=== PATIENT | male | born 1980 | race Two or more races ===

== ENCOUNTER 2019-06-22 18:54 | Emergency (ER) | payer SELFPAY ==
[~2019-06-22] VITALS: Ht 170.2 cm; Wt 90.7 kg
[2019-06-22 19:30] VITALS: BP 159/103
[2019-06-22 20:03] LABS: BILIRUBIN,URINE NEGATIVE (NEG); CLARITY,URINE CLEAR; COLOR,URINE YELLOW; NITRITE,URINE NEGATIVE (NEG); PH,URINE 5.5; PROTEIN,URINE NEGATIVE (NEG-TRACE)
[2019-06-22] MEDS ORDERED: CEPH-263 PO (20:05)
[2019-06-22 20:10] LABS: BACTERIA,URINE 0 /HPF (0-FEW); SQUAMOUS EPITHELIAL CELL,UR FEW /LPF
--- NOTE | 2019-06-23 05:17 | PHYS DOC ---
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 Patient is not been evaluated for his symptoms prior to ED arrival. Denies STD exposure. [] Review of Systems Review of Systems ROS as per HPI All other systems were reviewed and found to be within normal limits, except as documented in this note. Allergies Allergies Allergies Coded Allergies Type Severity Reaction Last Updated Verified No Known Drug Allergies 06/22/19 No Physical Exam Physical Exam Constitutional: Well developed, well nourished, no acute distress, non-toxic appearance. [] HENT: Normocephalic, atraumatic, bilateral external ears normal, oropharynx moist, no oral exudates, nose normal. [] Eyes: PERRLA, EOMI, conjunctiva normal, no discharge. [] Neck: Normal range of motion, no tenderness, supple, no stridor. [] Cardiovascular:Heart rate regular rhythm, no murmur [] Lungs & Thorax: Bilateral breath sounds clear to auscultation [] : Uncircumcised with yeast balanitis and involvement of foreskin. No lesions, discharge,'s scrotum and testicles no masses[] Neurologic: Alert and oriented X 3, normal motor function, normal sensory function, no focal deficits noted. [] Psychologic: Affect normal, judgement normal, mood normal. [] Current Patient Data Vital Signs Vital Signs Date Time Temp Pulse Resp B/P (MAP) Pulse Ox O2 Delivery O2 Flow Rate FiO2 06/22/19 19:30 98.2 107 18 159/103 (121) 98 Room Air 98.2 Lab Values Laboratory Tests Test 06/22/19 19:55 Urine Collection Type Unknown Urine Color Yellow Urine Clarity Clear Urine pH 5.5 Urine Specific [place] 1.025 Urine Protein Negative mg/dL (NEG-TRACE) Urine Glucose (UA) 250 mg/dL (NEG) Urine Ketones (Stick) Negative mg/dL (NEG) Urine Blood Negative (NEG) Urine Nitrite Negative (NEG) Urine Bilirubin Negative (NEG) Urine Urobilinogen Dipstick 1.0 mg/dL (0.2 mg/dL) Urine Leukocyte Esterase Negative (NEG) Urine RBC 1-2 /HPF (0-2) Urine WBC 5-10 /HPF (0-4) Urine Squamous Epithelial Cells Few /LPF Urine Bacteria 0 /HPF (0-FEW) Urine Mucus Mod /LPF Glucose (Fingerstick) 221 mg/dL (70-99) H EKG EKG [] Radiology/Procedures Radiology/Procedures [] Course & Med Decision Making Course & Med Decision Making Pertinent Labs and Imaging studies reviewed. (See chart for details) Blood sugar elevated suggestive of undiagnosed diabetes. UA negative. Will place on oral antibiotics and topical antifungal cream with instructions to follow-up with local PCP CARLOS for further evaluation of diabetes.] Dragon Disclaimer Dragon Disclaimer This electronic medical record was generated, in whole or in part, using a voice recognition dictation system. Departure Departure Impression: Primary Impression: Balanitis Additional Impression: Hyperglycemia Disposition: ADMITTED INPATIENT Condition: GOOD Patient Instructions: Hyperglycemia, [id number], Balanitis and Foreskin Hygiene, Diabetes, Type 2, Am I at Risk Additional Instructions: You were evaluated in the ED for a skin infection of your penis. It is important to keep the foreskin dry and to apply OTC topical antifungal cream (Lotrimen AF) twice daily and take the oral antibiotic as directed. Your blood sugar is maria del rosario vated and is consistent with new onset diabetes and is contributing to your skin infection. You will require additional tests to be performed by your PCP and will likey need to be started on diabetic medications in order for infection to heal. Please schedule an appointment with local primary care provider later this week. Scripts Cephalexin (KEFLEX) 250 Mg Capsule 1 CAP PO TID for 7 Days, #30 CAP 0 Refills Prov: CEDRICK GRAHAM DO 06/22/19 Problem Qualifiers CEDRICK GRAHAM DO Jun 23, 2019 05:17
== END 2019-06-22 20:20 | disposition home or self-care (01) ==
LOC: ER 18:54
DX: N48.1 Balanitis (principal); B96.89 Other specified bacterial agents as the cause of diseases classified elsewhere; N48.89 Other specified disorders of penis; R73.9 Hyperglycemia, unspecified; R21 Rash and other nonspecific skin eruption; Z90.89 Acquired absence of other organs
CPT/HCPCS: 81001; 82962; 87086; 99284

== ENCOUNTER 2021-02-26 17:38 | Emergency (ER) | payer SELFPAY ==
[~2021-02-26] VITALS: Ht 177.8 cm; Wt 93.4 kg
[~2021-02-26 17:38] MED LIST: CEPH-263 PO
[2021-02-26] MEDS ORDERED: HYDROcodone/APAP 7.5/325MG 1 TAB TABLET PO ONE (19:15)
[2021-02-26] MEDS ORDERED: KETOROLAC 60 MG/2 ML VIAL. IM ONE (19:15)
[2021-02-26 19:37] LABS: BASO # 0.1 x10^3/uL (0.0-0.2); BASO % 1 % (0-3); EOS % 0 % (0-3); HEMOGLOBIN 15.6 g/dL (13.0-17.5); LYMPH # 1.7 x10^3/uL (1.0-4.8); LYMPH % 11 % (24-48); MEAN CORPUSCULAR HEMOGLOBIN 31 pg (25-35); MEAN CORPUSCULAR HGB CONC 34 g/dL (31-37); MEAN CORPUSCULAR VOLUME 90 fL (79-100); MONO # 0.5 x10^3/uL (0.0-1.1); MONO % 3 % (0-9); NEUT # 13.2 x10^3/uL (1.8-7.7); NEUT % 85 % (31-73); PLATELET COUNT 316 x10^3/uL (140-400); RED BLOOD COUNT 5.12 x10^6/uL (4.30-5.70); RED CELL DISTRIBUTION WIDTH 13.9 % (11.5-14.5); WHITE BLOOD COUNT 15.5 x10^3/uL (4.0-11.0)
[2021-02-26 19:43] LABS: GFR 83.2; POTASSIUM 4.5 mmol/L (3.5-5.1)
--- NOTE | 2021-02-26 19:46 | RAD ---
Exam: Right foot 3 views INDICATION: Great toe pain TECHNIQUE: Frontal, lateral and oblique views of the right foot Comparisons: None FINDINGS: Bone mineralization is normal. No acute or healed fractures. Soft tissues are unremarkable. Joint [facility] [place] are well-maintained. IMPRESSION: No acute osseous abnormality of the right foot Electronically signed by: Mary Jo Holm MD (02/26/2021 7:44 PM) ORTI[facility]
[2021-02-26 19:47] LABS: URIC ACID 5.3 mg/dL (3.5-7.2)
[2021-02-26] MEDS ORDERED: CEPHALEXIN 250 MG CAPSULE. PO STA (20:28)
[2021-02-26] MEDS ORDERED: IBUP-1007 PO (20:45)
[2021-02-26] MEDS ORDERED: CEPH500T PO (20:45)
--- NOTE | 2021-02-26 20:46 | PHYS DOC ---
Past Medical History Past Medical History: No Pertinent History Past Surgical History: Appendectomy Smoking Status: Never Smoker Alcohol Use: Occasionally Drug Use: None General Adult EDM: Chief Complaint: FOOT INJURY PAIN HPI: HPI: Patient is a 40-year-old male presents emergency department complaining of right great toe pain with redness and inflammation for the past 2 weeks. Patient reports visiting an urgent care center 10 days ago and was started on prednisone which did not help with the symptoms. Patient reports a 10 out of 10 pain. Patient denies a gout history, reports type 2 diabetes. Denies injury to his right toe. Denies taking other pain medications or trying other nonphar macological pain relief methods at home. Denies other physical complaints or physical concerns. Review of Systems: Review of Systems: 14 body systems of review of systems have been reviewed. See HPI for pertinent positives and negative responses, otherwise all other systems are negative, nonpertinent or noncontributory. Constitutional: Negative except as outlined in HPI above. Skin: Negative except as outlined in HPI above. Eyes: Negative except as outlined in HPI above. HENT: Negative except as outlined in HPI above. Respiratory: Negative except as outlined in HPI above. Cardiovascular: Negative except as outlined in HPI above. GI: Negative except as outlined in HPI above. : Negative except as outlined in HPI above. Musculoskeletal: Negative except as outlined in HPI above. Integument: Negative except as outlined in HPI above. Neurologic: Negative except as outlined in HPI above. Endocrine: Negative except as outlined in HPI above. Lymphatic: Negative except as outlined in HPI above. Psychiatric: Negative except as outlined in HPI above. Heart Score: C/O Chest Pain: No Risk Factors: Risk Factors: DM, Current or recent (<one month) smoker, HTN, HLP, family history of CAD, obesity. Risk Scores: Score 0 - 3: 2.5% MACE over next 6 weeks - Discharge Home Score 4 - 6: 20.3% MACE over next 6 weeks - Admit for Clinical Observation Score 7 - 10: 72.7% MACE over next 6 weeks - Early Invasive Strategies Current Medications: Current Medications Medications (Trade) Dose Ordered Sig/Vincenzo Start Time Stop Time Status Last Admin Dose Admin Acetaminophen/ Hydrocodone Bitart (Lortab 7.5/325) 1 tab 1X ONCE 02/26/21 19:15 02/26/21 19:25 DC 02/26/21 19:41 1 TAB Ketorolac Tromethamine (Toradol Im) 60 mg 1X ONCE 02/26/21 19:15 02/26/21 19:25 DC 02/26/21 19:40 60 MG Allergies: Allergies: Allergies Coded Allergies Type Severity Reaction Last Updated Verified No Known Drug Allergies 02/26/21 No Physical Exam: PE: Constitutional: Well developed, well nourished, no acute distress, non-toxic appearance. 40-year-old male in no apparent distress. HENT: Normocephalic, atraumatic. Eyes: Conjunctiva normal, no discharge. Neck: Normal range of motion, no stridor. Cardiovascular: No cyanosis appreciated, distal cap refill less than 2 seconds. Lungs & Thorax: Patient is in no respiratory distress, no audible adventitious lung sounds appreciated. Abdomen: Nontender, no abnormalities noted. Skin: Warm, dry, no erythema, no rash. Back: No tenderness, no deformities. Extremities: No tenderness, no cyanosis, no clubbing, ROM intact, no edema. Except for right great toe, warm to touch, erythematous with mild swelling around #1 MIP joint, distal cap refill less than 2 seconds, no cyanosis appreciated, skin intact. Pain elicited with passive range of motion. 2+ dorsa lis pedis/posterior tibial pulse. Neurologic: Alert and oriented X 3, normal motor function, normal sensory function, no focal deficits noted. Psychologic: Affect normal, judgement normal, mood normal. Current Patient Data: Labs: Laboratory Tests Test 02/26/21 19:20 White Blood Count 15.5 x10^3/uL (4.0-11.0) H Red Blood Count 5.12 x10^6/uL (4.30-5.70) Hemoglobin 15.6 g/dL (13.0-17.5) Hematocrit 46.0 % (39.0-53.0) Mean Corpuscular Volume 90 fL (79-100) Mean Corpuscular Hemoglobin 31 pg (25-35) Mean Corpuscular Hemoglobin Concent 34 g/dL (31-37) Red Cell Distribution Width 13.9 % (11.5-14.5) Platelet Count 316 x10^3/uL (140-400) Neutrophils (%) (Auto) 85 % (31-73) H Lymphocytes (%) (Auto) 11 % (24-48) L Monocytes (%) (Auto) 3 % (0-9) Eosinophils (%) (Auto) 0 % (0-3) Basophils (%) (Auto) 1 % (0-3) Neutrophils # (Auto) 13.2 x10^3/uL (1.8-7.7) H Lymphocytes # (Auto) 1.7 x10^3/uL (1.0-4.8) Monocytes # (Auto) 0.5 x10^3/uL (0.0-1.1) Eosinophils # (Auto) 0.0 x10^3/uL (0.0-0.7) Basophils # (Auto) 0.1 x10^3/uL (0.0-0.2) Sodium Level 136 mmol/L (136-145) Potassium Level 4.5 mmol/L (3.5-5.1) Chloride Level 99 mmol/L (98-107) Carbon Dioxide Level 27 mmol/L (21-32) Anion Gap 10 (6-14) Blood Urea Nitrogen 22 mg/dL (8-26) Creatinine 1.0 mg/dL (0.7-1.3) Estimated GFR (Cockcroft-Gault) 83.2 Glucose Level 256 mg/dL (70-99) H Uric Acid 5.3 mg/dL (3.5-7.2) Calcium Level 10.0 mg/dL (8.5-10.1) Laboratory Tests 02/26/21 19:20 Laboratory Tests 02/26/21 19:20 Vital Signs: Vital Signs Date Time Temp Pulse Resp B/P (MAP) Pulse Ox O2 Delivery O2 Flow Rate FiO2 02/26/21 19:41 18 96 Room Air 02/26/21 18:17 98.2 86 148/96 (113) 98.2 EKG: EKG: [] Radiology/Procedures: Radiology/Procedures: PATIENT: BRIAN LORENZACCOUNT: [id number] : 1980 LOCATION: ER AGE: 40 SEX: M EXAM STATUS: REG ER ORD. PHYSICIAN: ALFONZO ESPINO APRN REASON: great toe pain PROCEDURE: FOOT RIGHT 3V Exam: Right foot 3 views INDICATION: Great toe pain TECHNIQUE: Frontal, lateral and oblique views of the right foot Comparisons: None FINDINGS: Bone mineralization is normal. No acute or healed fractures. Soft tissues are unremarkable. Joint spaces are well-maintained. IMPRESSION: No acute osseous abnormality of the right foot Electronically signed by: Mary Jo Holm MD (02/26/2021 7:44 PM) [facility] Course & Med Decision Making: Course & Med Decision Making Pertinent Labs and Imaging studies reviewed. (See chart for details) 40-year-old male, vital signs reviewed, presents emergency department concerning right great toe pain for the past 2 weeks. Patient was started on prednisone by a previous provider, was told it might be gout. Physical examination consistent with gouty arthritis versus cellulitis versus other infectious process. Will order ESR, uric acid, CBC, BMP, x-ray to rule out great toe joint discrepancy. Patient is labs unremarkable however does show mild leukocytosis, with normal ESR and uric acid levels this is most likely a cellulitis. Discussed with patient diagnosis of cellulitis, antibiotic Keflex 4 times daily x7 days, side effects of antibiotic, strict follow-up with primary care in [facility] this week for reevaluation, patient gave verbal understanding of and is amenable to ED discharge planning. Discussed with the patient all findings and diagnostic testing as well as the need to follow-up with their primary care provider for further evaluation and treatment or return to the ED if any new or worsening symptoms. Strict return precautions were also discussed at length, the patient voiced understanding and agreement with the discharge planning. The patient was nontoxic in appearance, in no apparent distress, and hemodynamically stable at the time of disposition. Malissaon Disclaimer: Benja Disclaimer: This electronic medical record was generated, in whole or in part, using a voice recognition dictation system. Departure Departure Impression: Primary Impression: Cellulitis of right foot Disposition: 01 HOME / SELF CARE / HOMELESS Condition: GOOD Referrals: NO PCP (PCP) Patient Instructions: Cellulitis Additional Instructions: You were seen today in the emergency department for pain and inflammation of the right great toe area. This appeared to be a gout flareup, you do not have a history of gout, the labs that were drawn today in the emergency department did not support a diagnosis of gout, please let your doctor know that the uric acid level and ESR level were within normal limits and not elevated. You may stop taking the prednisone that was prescribed for you during your earlier visit, please start taking the antibiotic as directed until complete. Please take the pain medication to help with discomfort. Please see your doctor at the [facility] this week for a reevaluation and to let them know of your visit today. Please bring these documents with you so they can understand what tests were done in the emergency department today. Please let them know that you had a mild leukocytosis WBC of 15.5, all other labs concerning for gout such as uric acid and ESR were within normal limits. The x-ray of your foot did not show any bone abnormalities suggestive of gout or other infectious process. Thank you for visiting our Emergency Department. It was a pleasure taking care of you today in the emergency department and we appreciate you trusting us with your care. If any additional problems come up don't hesitate to return to visit us. Please follow up with your primary care provider so they can plan additional care if needed and know about the problem that you had. If symptoms worsen come back to the Emergency Department. Any concerning symptoms that start such as chest pain, shortness of air, weakness or numbness on one side of the body, running high fevers or any other concerning symptoms return to the ER. Hoy lo vieron en el departamento de emergencias por dolor e inflamacin en el jeff del dedo caleb [facility]. [place] pareci ser un brote de gota, no tiene antecedentes de gota, los anlisis de laboratorio que se tomaron homerrick en el departamento de emergencias no respaldaron un diagnstico de gota, informe a fuchs mdico que el nivel de cido rico y el nivel de ESR estaban dentro de lmites normales y no elevados. Puede dejar de corrie la prednisona que le recetaron anamika fuchs visita anterior; comience a corrie el antibitico segn las indicacion es hasta completarlo. [place] los analgsicos para aliviar las molestias. Consulte a fuchs mdico en la [facility] [place] esta semana para kehinde reevaluacin y para informarle de fuchs visita hoy. Traiga estos documentos para que puedan comprender qu pruebas se realizaron en el departamento de emergencias hoy. Hgales saber que tuvo kehinde leucocitosis leve de leucocitos de 15,5, todos los dems laboratorios relacionados con la gota, viktor el cido rico y la VSG, se encontraban dentro de los lmites normales. La radiografa de fuchs pie no mostr ninguna anomala sea que sugiriera gota u otro proceso infeccioso. May por visitar nuestro Departamento de Emergencias. Fue un placer atenderlo hoy en el departamento de emergencias y le agradecemos que nos haya confiado fuchs atencin. Si surge algn problema adicional, no dude en volver a visitarnos. Isauro un seguimiento con fuchs proveedor de atencin primaria para que puedan planificar atencin adicional si es necesario y conocer el problema que tuvo. Si los sntomas empeoran, regrese al Departamento de Emergencias. Cualquier sntoma preocupante que comience, viktor dolor en el pecho, falta de aire, debilidad o entumecimiento en un lado del cuerpo, fiebre jerrod o cualquier otro sntoma preocupante, regresa a la jorge de emergencias. Scripts Ibuprofen (IBUPROFEN) 600 Mg Tablet 600 MG PO PRN Q6HRS PRN for INFLAMMATION, #30 TAB 0 Refills Prov: ALFONZO ESPINO A AUTOMAT [employer]ER 02/26/21 Cephalexin (CEPHALEXIN) 500 Mg Tablet 1 TAB PO QID for skin infection for 7 Days, #28 TAB 0 Refills Prov: ALFONZO ESPINO A AUTOMAT WATCHER 02/26/21 ALFONZO ESPINO A AUTOMAT WATCHER Feb 26, 2021 20:46
[2021-02-26 20:50] VITALS: BP 141/88
== END 2021-02-26 20:19 | disposition home or self-care (01) ==
LOC: ER 17:38
DX: L03.115 Cellulitis of right lower limb (principal)
CPT/HCPCS: 36415; 73630; 80048; 84550; 85025; 85651; 96372; 99284; J1885